=== PATIENT | female | born 1980 | race African-American/Black ===

== ENCOUNTER 2017-04-09 18:53 | Emergency (ER) | payer SELFPAY ==
[~2017-04-09] VITALS: Ht 175.3 cm; Wt 68.0 kg
[2017-04-09 19:28] VITALS: BP 118/70
== END 2017-04-09 19:31 | disposition left against medical advice (07) ==
LOC: ER 18:53
DX: F10.20 Alcohol dependence, uncomplicated (principal); Z53.21 Procedure and treatment not carried out due to patient leaving prior to being seen by health care provider

== ENCOUNTER 2017-08-18 07:42 | Emergency (ER) | payer SELFPAY | END 2017-08-18 09:00 | disposition home or self-care (01) | LOC: ER 09:00 | DX: S29.011A Strain of muscle and tendon of front wall of thorax, initial encounter (principal); M54.12 Radiculopathy, cervical region; G89.29 Other chronic pain; X58.XXXA Exposure to other specified factors, initial encounter; Y93.F2 Activity, caregiving, lifting; Y92.69 Other specified industrial and construction area as the place of occurrence of the external cause; Y99.8 Other external cause status | CPT/HCPCS: 99283 ==

== ENCOUNTER 2018-01-07 22:15 | Emergency (ER) | payer SELFPAY ==
[~2018-01-07] VITALS: Ht 175.3 cm; Wt 68.0 kg
[~2018-01-07 22:15] MED LIST: CYCL10TA2 PO; NAPR-695 PO
[2018-01-07] MEDS ORDERED: TETRACAINE 0.5% OPHTH SOLUTION 4ML BOTTLE. OS ONE (23:30)
[2018-01-08 00:28] VITALS: BP 120/73
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
[2018-01-08] MEDS ORDERED: HYDR-971 PO (01:13)
[2018-01-08] MEDS ORDERED: ERYT1OIN6 OP (01:13)
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
[2018-01-08] MEDS ORDERED: HYDROcodone/APAP 5/325MG 1 TAB TABLET PO ONE (01:30)
== END 2018-01-08 01:43 | disposition home or self-care (01) ==
LOC: ER 22:15
DX: S05.12XA Contusion of eyeball and orbital tissues, left eye, initial encounter (principal); S05.02XA Injury of conjunctiva and corneal abrasion without foreign body, left eye, initial encounter; S09.90XA Unspecified injury of head, initial encounter; H11.32 Conjunctival hemorrhage, left eye; G89.29 Other chronic pain; Y08.89XA Assault by other specified means, initial encounter; Y93.89 Activity, other specified; Y92.89 Other specified places as the place of occurrence of the external cause; Y99.8 Other external cause status
CPT/HCPCS: 70450; 70480; 99284